=== PATIENT | female | born 1950 | race Caucasian/White ===

== ENCOUNTER 2021-11-07 14:37 | Outpatient (REF) | payer MEDICARE, SELFPAY ==
--- NOTE | ~2021-11-07 | XR_ITS ---
EXAMINATION: XR KNEE, RIGHT CLINICAL INFORMATION: Right knee pain COMPARISON: None TECHNIQUE: Right knee is imaged in 4 views including AP projection with weightbearing. FINDINGS: No fracture, dislocation, destructive process. Normal bony mineralization. There is extensive chondrocalcinosis involving the medial and lateral menisci and also some focal chondrocalcinosis medial retropatellar cartilage. There is narrowing lateral knee joint compartment with mild secondary genu valgus. No erosive changes. Axial view patella shows no lateralization or tilting. There is a small to moderate suprapatellar effusion. Hoffa's fat pad appears normal. XR/XR knee RT 4V IMPRESSION: -Narrowing lateral knee joint compartment with secondary genu valgus. Small to moderate effusion. -Prominent chondrocalcinosis medial and lateral menisci. Focal chondrocalcinosis medial retropatellar cartilage.
== END 2021-11-07 14:38 | disposition home or self-care (01) ==
LOC: HO.XRAY 14:37
PROVIDERS: PCP Family Medicine; Visit Provider Family Medicine
DX: M25.561 Pain in right knee (principal)
CPT/HCPCS: 73564

== ENCOUNTER 2021-12-22 07:13 | Outpatient (REF) | payer MEDICARE, SELFPAY ==
--- NOTE | ~2021-12-22 | XR_ITS ---
EXAMINATION: XR KNEE AP STANDING CLINICAL INFORMATION: Pain. COMPARISON: None TECHNIQUE: AP bilateral standing view of the knees was obtained. FINDINGS: Bony alignment and mineralization are normal. There is no significant varus or valgus configuration bilaterally. The bilateral lateral and medial joint space compartments are well-maintained and show peripheral osteophyte formation. There is chondrocalcinosis. No fracture or dislocation is seen. There is no foreign body. XR/XR knee standing BI IMPRESSION: 1. 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 2. There is chondrocalcinosis, which can be associated with CPPD. 3. No significant varus or valgus configuration is seen bilaterally.
== END 2021-12-22 07:14 | disposition home or self-care (01) ==
LOC: HO.HOSX 07:13
PROVIDERS: Visit Provider Physician Assistant
DX: M17.11 Unilateral primary osteoarthritis, right knee (principal)
CPT/HCPCS: 73565; 99202

== ENCOUNTER → 2022-02-08 14:40 | Outpatient (REF) | payer MEDICARE, SELFPAY ==
--- NOTE | 2022-02-08 14:43 | CA_ITS ---
Transthoracic Echocardiogram Patient (Last, First, Middle): Trice Palomino, Gender: Female Date of : 1950 Age: 71 Procedure Date: 02/08/2022 Procedure Type: Transthoracic Echocardiogram Location: OP Height: 157.48 cm Weight: 76.2 kg BSA: 1.77 m2 Heart Rate: 62 bpm BP: 124 / 62 mmHg [employer] Specialist: SB Referring MD: Derrick Restrepo MD Help Desk Rep: Jean-Pierre Gagnon MD Symptoms: SYSTOLIC MURMUR AT RSB R01.1 Study Quality: Adequate ECG Rhythm: Sinus Conclusions: - 1. Normal LV systolic function with grade 1 diastolic dysfunction 2. Mild fibrocalcific aortic valve changes noted with normal cardiac valvular Doppler 3. Normal RV systolic pressure 4. No pericardial effusion Findings Left Ventricle Normal left ventricular size, thickness, and systolic function. The visually estimated ejection fraction is between 60-65%. Spectral Doppler is indicative of an impaired relaxation filling pattern. E/E prime ratio is <8, consistent with normal filling pressures. Evidence suggests grade I (mild) diastolic dysfunction. Peak GLS is -19.2%, within normal limits Right Ventricle Normal right ventricular cavity size and systolic function. Atria Both atria are normal in size. There is lipomatous hypertrophy of the interatrial septum. There is no evidence of interatrial shunt. Aortic Valve There is mild calcification of the aortic valve. There is no aortic valve stenosis. There is no aortic valve regurgitation. Mitral Valve There is mild anterior and posterior mitral leaflet thickening. There is mild mitral annular calcification. There is trace mitral valve regurgitation. There is no mitral valve stenosis. Pulmonic Valve The pulmonic valve is likely normal. Tricuspid Valve Normal tricuspid valve structure. The right ventricular systolic pressure is 30 mmHg. Normal right atrial pressure. There is no evidence of pulmonary hypertension. Great Vessels All visible segments of the aorta are normal in size. The pulmonary artery was not well visualized. Venous The inferior vena cava is normal in size and collapses greater than 50% with inspiration. Pericardium/Pleural There is no evidence of pericardial effusion. Prior Study Comparison No prior study available for comparison. Measurements 2D Linear Measurements IVSd: 1.27 0.6-0.9/0.6-1.0 cm LVIDd: 4.35 3.9-5.3/4.2-5.9 cm LVIDd Index: 2.46 2.4-3.2/2.2-3.1 cm/m2 LVIDs: 2.58 2.0-3.6 cm LVPWd: 1.05 0.7-1.1 cm LA Diam: 4.00 2.7-3.8/3.0-4.0 cm LAIDs Index: 2.26 1.5-2.3 cm/m2 LV Mass: 223.01 67-162/88-224 g LV Mass Index: 125.99 43-95/49-115 g/m2 LVOT Diam: 2.00 3.0+(-)1.3 cm 2D Systolic Function EF 4C: 66.40 >55% EF 2C: 46.60 >55% Mitral Valve MV Pk E: 0.94 MV PK A: 0.77 MV Decel Time: 228.00 E/A: 1.20 E'Lateral: 6.09 E'Medial: 5.11 E/E' Med: 18.30 E/E' Lat: 15.40 PHT: 67.00 MVA PHT: 3.28 Decel Mcleod: 4.11 Aortic Valve AoV Pk Kush: 1.50 AoV Mn Kush: 0.93 AoV VTI: 0.31 AoV Pk Grad: 9.00 Aov Mn Grad: 4.00 HELEN Cont.VTI: 2.94 LVOT LVOT Pk Kush: 1.31 LVOT Mn Kush: 0.92 LVOT VTI: 0.29 LVOT Pk Grad: 7.00 LVOT Mn Grad: 4.00 LVOT Diam: 2.00 LVOT Area: 3.14 Diastolic Function MV Pk E: 0.94 MV Pk A: 0.77 E/A: 1.20 E'Medial: 5.11 E/E' Med: 18.30 E' Laterial: 6.09 E/E' Lat: 15.40 Right Ventricle TAPSE (mm): 23.30 TVS' Kush: 14.80 Tricuspid Valve TR Pk Kush: 2.59 TR Pk Grad: 27.00 RA Press: 3.00 RVSP: 30.00 Great Vessels Aorta Sinus of Valsalva: 3.10 2.0-3.[address] Ridge: 2.92 1.7-3.4 cm Ao Asc: 3.50 2.1-3.4 cm Pulmonary Veins Pulm Vein S/D 2.00 Pulmonary Valve PV Pk Kush: 0.89 Peak PV Grad: 3.00 Updated in Other Vendor System with Status of Final Jean-Pierre Gagnon MD electronically signed on 02/09/2022 2:22:27 PM with status of Final
== END ==
LOC: HO.CARD 14:40
PROVIDERS: Visit Provider Family Medicine
DX: R01.1 Cardiac murmur, unspecified (principal)
CPT/HCPCS: 93306; 93356

== ENCOUNTER → 2022-03-16 12:36 | Outpatient (BNVA) | payer MEDICARE, SELFPAY | PROVIDERS: PCP Family Medicine; Visit Provider Physician Assistant | DX: M17.11 Unilateral primary osteoarthritis, right knee (principal) | CPT/HCPCS: 99212 ==